=== PATIENT | female | born 1995 | race Hispanic/Latino ===

== ENCOUNTER 2017-02-07 16:22 | Inpatient (IN) | payer BC ==
[2017-02-07] MEDS ORDERED: Sodium Chloride 0.9% 1,000 ML IV STA (17:54)
[2017-02-07 18:00] LABS: BASO % 0.4 % (0.0-2.0); EOS % 0.2 % (0.0-4.0); LYMPH # 1.6 K/uL (1.0-4.3); LYMPH % 21.6 % (20.0-40.0); MEAN CELL VOLUME 85.1 fl (81.0-99.0); MEAN CORPUSCULAR HEMOGLOBIN 28.4 pg (27.0-31.0); MEAN CORPUSCULAR HGB CONC 33.3 g/dL (33.0-37.0); MEAN PLATELET VOLUME 8.6 fl (7.2-11.7); MONO # 0.6 K/uL (0.0-0.8); MONO % 8.4 % (0.0-10.0); NEUT # 5.1 K/uL (1.8-7.0); NEUT % 69.4 % (50.0-75.0); RED CELL DISTRIBUTION WIDTH 13.5 % (11.5-14.5); WHITE BLOOD COUNT 7.3 K/uL (4.8-10.8)
--- NOTE | 2017-02-07 18:00 | ED PDOC ---
HPI: Psych/Substance Abuse Time Seen by Provider: 02/07/17 16:30 Chief Complaint (Nursing): Psychiatric Evaluation Chief Complaint (Provider): Psychiatric Evaluation History Per: Patient History/Exam Limitations: no limitations Current Symptoms Are (Timing): Still Present Suicide/Self Injury Attempted (Context): Ingestion (2x 600mg motrin, "a bunch of advil", nyquil) Severity: Moderate Associated Symptoms: denies: Suicidal Thoughts (patient denies) Additional Complaint(s): 21 year old female with no pertinent medical history is brought into the ED by BLS for a psychiatric evaluation. Patient called 911 after possible pill ingestion. She reports taking 2x tabs of 600mg motrin, "a bunch of" advil, and drank nyquil in a suicidal attempt just prior to arrival. She reports feeling tired but denies having any other medical complaints. She denies having suicidal ideation and homicidal ideation. PMD: not provided Past Medical History Reviewed: Historical Data, Nursing Documentation, Vital Signs Vital Signs: Last Vital Signs Temp 98.0 F 02/07/17 16:25 Pulse 124 H 02/07/17 16:25 Resp 16 02/07/17 16:25 BP 147/106 H 02/07/17 16:25 Pulse Ox 100 02/07/17 16:25 - Medical History PMH: No Chronic Diseases - Surgical History Surgical History: No Surg Hx - Family History Family History: States: No Known Family Hx - Social History Current smoker - smoking cessation education provided: No Alcohol: None Drugs: Denies - Allergies Allergies/Adverse Reactions: Allergies Allergy/AdvReac Type Severity Reaction Status Date / Time No Known Allergies Allergy Verified 02/07/17 16:25 Review of Systems ROS Statement: Except As Marked, All Systems Reviewed And Found Negative Constitutional: Positive for: Other (tired) Psych: Negative for: Suicidal ideation (patient denies) Physical Exam - Reviewed Nursing Documentation Reviewed: Yes Vital Signs Reviewed: Yes - Physical Exam Appears: Positive for: Well, Non-toxic, No Acute Distress Head Exam: Positive for: ATRAUMATIC, NORMOCEPHALIC Skin: Positive for: Normal Color, Warm, Dry Neck: Positive for: Normal Cardiovascular/Chest: Positive for: Regular Rate, Rhythm Respiratory: Positive for: Normal Breath Sounds. Negative for: Respiratory Distress Gastrointestinal/Abdominal: Positive for: Normal Exam, Soft. Negative for: Tenderness Extremity: Positive for: Normal ROM, Other (superficial lacerations on left forearm. no active bleeding. neurovascular intact) Neurologic/Psych: Positive for: Alert, Oriented (3x) - Laboratory Results Result Diagrams: 02/07/17 17:45 02/07/17 17:45 - ECG O2 Sat by Pulse Oximetry: 100 (RA) Pulse Ox Interpretation: Normal Medical Decision Making Medical Decision Makin:43 Initial impression: 21 year old female with possible pill ingestion, as suicide attempt Initial plan: * EKG * acetaminophen * alcohol serum * CMP * drug screen urinary * salicylate * CBC * IV NS 1,000ml IV 999mls/hr * urinalysis * reevaluation RN called poision control. they said observe for signs of gi bleeding for several hours. while in the ER pt without any signs of gi bleeding or any unstable vitals. pt awake and alert in no acute distress pt medically cleared for psych evaluation 21:34 Upon psychiatric evaluation, patient will be admitted to adult psychiatry under Dr. Dean Larios for depression. Scribe Attestation: Documented by Aby Ozuna, acting as a scribe for Smita Murphy MD. Provider Scribe Attestation: All medical record entries made by the Scribe were at my direction and personally dictated by me. I have reviewed the chart and agree that the record accurately reflects my personal performance of the history, physical exam, medical decision making, and the department course for this patient. I have also personally directed, reviewed, and agree with the discharge instructions and disposition. Disposition - Clinical Impression Clinical Impression: Depression - Patient ED Disposition Is Patient to be Admitted: Yes Counseled Patient/Family Regarding: Studies Performed, Diagnosis - Disposition Disposition Time: 21:00 Condition: STABLE
[2017-02-07 18:20] LABS: ALB/GLOB RATIO 1.3 (1.0-2.1); ALCOHOL SERUM < 10 mg/dl (0-10); ALKALINE PHOSPHATASE 74 U/L (38-126); ALT/SGPT 45 U/L (9-52); AST/SGOT 28 U/L (14-36); BILIRUBIN,TOTAL 0.4 mg/dl (0.2-1.3); BLOOD UREA NITROGEN 11 mg/dl (7-17); CALCIUM 9.6 mg/dL (8.4-10.2); CARBON DIOXIDE 23 mmol/L (22-30); CHLORIDE 107 mmol/L (98-107); GFR AFRICAN-AMERICAN > 60; GLUCOSE,RANDOM 95 mg/dL (65-105); POTASSIUM 3.7 MMOL/L (3.6-5.0); SODIUM 141 mmol/l (132-148); TOTAL PROTEIN 8.1 G/DL (6.3-8.2)
[2017-02-07 18:55] LABS: RBC URINE 115 /hpf (0-3); URINE BACTERIA RARE (<OCC); URINE BILIRUBIN NEGATIVE (NEGATIVE); URINE BLOOD LARGE (NEGATIVE); URINE COLOR AMBER (YELLOW); URINE GLUCOSE (UA) NEG (Normal); URINE KETONE NEGATIVE (NEGATIVE); URINE LEUKOCYTE ESTERASE NEG Leu/uL (Negative); URINE PROTEIN 100 mg/dL (NEGATIVE); URINE UROBILINOGEN 0.2-1.0 mg/dL (0.2-1.0); WBC URINE 4 /hpf (0-5)
[2017-02-07 21:46] VITALS: O2SAT 100
[2017-02-07] MEDS ORDERED: Magnesium Hydroxide Susp 30 ml UD PO PRN (22:56)
[2017-02-07] MEDS ORDERED: Alum-Mag Hydrox-Simethicone Susp (30 mL) PO PRN (22:56)
[2017-02-07] MEDS ORDERED: DiphenhydrAMINE 50 mg/ml Inj IM PRN (22:56)
[2017-02-08 08:55] VITALS: BP 131/58; PULSE 93; RESP 20; TEMP 97.7
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
--- NOTE | 2017-02-08 19:14 | CARD ---
APPROVED REPORT EKG Measurement Heart [id number] <Conclusion> Sinus tachycardia Otherwise normal ECG
== END 2017-02-08 15:00 | disposition home or self-care (01) | DRG 885 ==
LOC: H.ER 16:22 → H.EROBSV 20:12 → OBSVTOIN 21:34 → H.ERHOLD 21:39 → H.PSYCH 22:52
PROVIDERS: ADMIT Psychiatry & Neurology Psychiatry; ATTEND Psychiatry & Neurology Psychiatry
PROC: GZHZZZZ Group Psychotherapy (ICD-10-PCS; principal; 2017-02-07)
PROC: GZ58ZZZ Individual Psychotherapy, Cognitive-Behavioral (ICD-10-PCS; 2017-02-07)
DX: F39 Unspecified mood [affective] disorder (principal); F41.9 Anxiety disorder, unspecified; Z91.410 Personal history of adult physical and sexual abuse; Z91.411 Personal history of adult psychological abuse

== ENCOUNTER 2017-04-20 07:07 | Emergency (ER) | payer BC ==
[2017-04-20 07:16] VITALS: BP 115/61; PULSE 81; TEMP 97; O2SAT 100
[2017-04-20 07:17] VITALS: BMI 22.4
[2017-04-20] MEDS ORDERED: Sodium Chloride 0.9% 1,000 ML IV STA (07:25)
--- NOTE | 2017-04-20 07:44 | ED PDOC ---
HPI: Abdomen Time Seen by Provider: 04/20/17 07:08 Chief Complaint (Nursing): Female Genitourinary Chief Complaint (Provider): Abdominal pain History Per: Patient History/Exam Limitations: no limitations Current Symptoms Are (Timing): Still Present Additional Complaint(s): 21 y/o female with a past medical history of kidney stones who presents to the emergency department with a right flank and right lower region abdominal pain since yesterday, 04/19/2017. Denies fever and diarrhea. PMD: Dr. Alejandro Nowak MD Past Medical History Reviewed: Historical Data, Nursing Documentation, Vital Signs Vital Signs: Last Vital Signs Temp 97 F L 04/20/17 07:14 Pulse 81 04/20/17 07:14 Resp BP 115/61 04/20/17 07:14 Pulse Ox 100 04/20/17 09:12 - Medical History PMH: Denies: Diabetes, Hepatitis, HIV, HTN, Chronic Kidney Disease, Seizures, Sexually Transmitted Disease Other PMH: Kidney stones - Family History Family History: States: Unknown Family Hx - Social History Current smoker - smoking cessation education provided: No Alcohol: None Drugs: Denies - Home Medications Home Medications: Ambulatory Orders Medication Instructions Recorded DiphenhydrAMINE [Benadryl] 50 mg PO HS PRN cap 02/08/17 Ciprofloxacin HCl [Cipro] 500 mg PO BID #20 tab 04/20/17 Naproxen [Naprosyn] 500 mg PO Q12H #20 tab 04/20/17 Tamsulosin [Flomax] 0.4 mg PO DAILY #5 cap 04/20/17 traMADol [Ultram] 50 mg PO Q8 #10 tab 04/20/17 - Allergies Allergies/Adverse Reactions: Allergies Allergy/AdvReac Type Severity Reaction Status Date / Time No Known Allergies Allergy Verified 02/07/17 16:25 Review of Systems ROS Statement: Except As Marked, All Systems Reviewed And Found Negative Constitutional: Negative for: Fever Gastrointestinal: Positive for: Nausea, Abdominal Pain (Right lower region). Negative for: Diarrhea Genitourinary Female: Positive for: Dysuria Musculoskeletal: Positive for: Back Pain (Right flank pain) Physical Exam - Reviewed Nursing Documentation Reviewed: Yes Vital Signs Reviewed: Yes - Physical Exam Appears: Positive for: Non-toxic, Uncomfortable Head Exam: Positive for: ATRAUMATIC, NORMAL INSPECTION, NORMOCEPHALIC Skin: Positive for: Normal Color, Warm, Dry Neck: Positive for: Normal, Supple Gastrointestinal/Abdominal: Positive for: Soft, Tenderness (Mild abdominal tenderness to the RLQ region. ). Negative for: Normal Exam Back: Negative for: Normal Inspection, L CVA Tenderness, R CVA Tenderness Neurologic/Psych: Positive for: Alert, Oriented (x3) - Laboratory Results Result Diagrams: 04/20/17 07:40 04/20/17 07:40 - ECG O2 Sat by Pulse Oximetry: 100 (RA) Pulse Ox Interpretation: Normal - Progress Re-evaluation Time: 09:14 Condition: Improved Medical Decision Making Medical Decision Making: Time: 07:25 Initial impression: Abdominal pain Initial plan: --Abd & Pelvis PO & IV CT --CMP --Urine DIP & Preg --CBC w/ diff --Toradol 30 mg IVP --Sodium Chloride 1L IV 100 mls/hr --Reevaluation Time: 09:04 --Abd & Pelvis CT FINDINGS: LOWER THORAX: The lung bases are clear. LIVER: There is mild hepatomegaly. No gross lesion or ductal dilatation. GALLBLADDER AND BILE DUCTS: There are no calcified gallstones. PANCREAS: The pancreas is normal in size. No gross lesion or ductal dilatation. SPLEEN: The spleen is normal in size. ADRENALS: Both adrenal glands are normal in size without discrete nodule. KIDNEYS AND URETERS: There is a 4 mm obstructing stone in the right distal ureter proximal to the UV junction with resultant mild diffuse dilatation of the right ureteral, mild hydronephrosis, edema and enlargement of the right kidney and perinephric stranding and edema. There are punctate nonobstructing stones in the right kidney. The left kidney is normal in size. There is a punctate nonobstructing stone in the upper pole of the left kidney. No hydronephrosis. The left ureter is not dilated. VASCULATURE: No aortic aneurysm. BOWEL: The small bowel loops are normal in caliber. There is moderate amount of stool in the colon. No bowel dilatation. APPENDIX: Normal appendix. PERITONEUM: No free fluid. No free air. LYMPH NODES: No enlarged lymph nodes. BLADDER: Unremarkable. REPRODUCTIVE: The uterus is normal in size. BONES: No acute fracture. OTHER FINDINGS: None. IMPRESSION: 1. Moderate right obstructive uropathy resulting from a 4 mm stone in the right distal ureteral proximal to the UV junction. 2. Small nonobstructing stones in the right kidney. 3. Punctate nonobstructing stone in the upper pole of the left kidney. Scribe Attestation: Documented by Tory Tenorio, acting as a scribe for Micheal Fuentes MD. Provider Scribe Attestation: All medical record entries made by the Scribe were at my direction and personally dictated by me. I have reviewed the chart and agree that the record accurately reflects my personal performance of the history, physical exam, medical decision making, and the department course for this patient. I have also personally directed, reviewed, and agree with the discharge instructions and disposition. Disposition - Clinical Impression Clinical Impression: Kidney stone - Patient ED Disposition Is Patient to be Admitted: No - Disposition Referrals: Reggie Mendiola Jr., MD [Staff Provider] - Disposition: Routine/Home Disposition Time: 09:14 Condition: FAIR Prescriptions: Ciprofloxacin HCl [Cipro] 500 mg PO BID #20 tab Naproxen [Naprosyn] 500 mg PO Q12H #20 tab Tamsulosin [Flomax] 0.4 mg PO DAILY #5 cap traMADol [Ultram] 50 mg PO Q8 #10 tab Instructions: Kidney Stones (ED) Forms: [employer] (E[place]ian)
[2017-04-20 07:56] LABS: BASO # 0.1 K/uL (0.0-0.2); BASO % 0.5 % (0.0-2.0); EOS # 0.1 K/uL (0.0-0.7); EOS % 0.8 % (0.0-4.0); HEMATOCRIT 36.5 % (34.0-47.0); LYMPH # 3.2 K/uL (1.0-4.3); LYMPH % 23.2 % (20.0-40.0); MEAN CORPUSCULAR HEMOGLOBIN 29.4 pg (27.0-31.0); MEAN CORPUSCULAR HGB CONC 33.4 g/dL (33.0-37.0); MEAN PLATELET VOLUME 8.6 fl (7.2-11.7); MONO # 1.2 K/uL (0.0-0.8); MONO % 8.8 % (0.0-10.0); NEUT # 9.2 K/uL (1.8-7.0); NEUT % 66.7 % (50.0-75.0); RED CELL DISTRIBUTION WIDTH 13.5 % (11.5-14.5)
[2017-04-20 08:19] LABS: WHITE BLOOD COUNT 13.9 K/uL (4.8-10.8)
[2017-04-20 08:23] LABS: BLOOD UREA NITROGEN 13 mg/dl (7-17); CHLORIDE 103 mmol/L (98-107); GFR AFRICAN-AMERICAN > 60; GLUCOSE,RANDOM 102 mg/dL (65-105); POTASSIUM 3.7 MMOL/L (3.6-5.0); SODIUM 136 mmol/l (132-148)
[2017-04-20 08:24] LABS: ALB/GLOB RATIO 1.3 (1.0-2.1); CALCIUM 9.6 mg/dL (8.4-10.2); CARBON DIOXIDE 24 mmol/L (22-30); TOTAL PROTEIN 7.1 G/DL (6.3-8.2)
[2017-04-20 08:25] LABS: ALKALINE PHOSPHATASE 67 U/L (38-126); ALT/SGPT 20 U/L (9-52); AST/SGOT 22 U/L (14-36); BILIRUBIN,TOTAL 0.3 mg/dl (0.2-1.3)
--- NOTE | 2017-04-20 09:06 | CT ---
PROCEDURE: CT Abdomen and Pelvis without intravenous contrast HISTORY: r/o kidney stone COMPARISON: None. TECHNIQUE: CT scan of the abdomen and pelvis was performed without administration of intravenous contrast. Oral contrast was not administered. Coronal and sagittal reformatted images were obtained. Radiation dose: Total exam DLP = 306.02 mGy-cm. This CT exam was performed using one or more of the following dose reduction techniques: Automated exposure control, adjustment of the mA and/or kV according to patient size, and/or use of iterative reconstruction technique. FINDINGS: LOWER THORAX: The lung bases are clear. LIVER: There is mild hepatomegaly. No gross lesion or ductal dilatation. GALLBLADDER AND BILE DUCTS: There are no calcified gallstones. PANCREAS: The pancreas is normal in size. No gross lesion or ductal dilatation. SPLEEN: The spleen is normal in size. ADRENALS: Both adrenal glands are normal in size without discrete nodule. KIDNEYS AND URETERS: There is a 4 mm obstructing stone in the right distal ureter proximal to the UV junction with resultant mild diffuse dilatation of the right ureteral, mild hydronephrosis, edema and enlargement of the right kidney and perinephric stranding and edema. There are punctate nonobstructing stones in the right kidney. The left kidney is normal in size. There is a punctate nonobstructing stone in the upper pole of the left kidney. No hydronephrosis. The left ureter is not dilated. VASCULATURE: No aortic aneurysm. BOWEL: The small bowel loops are normal in caliber. There is moderate amount of stool in the colon. No bowel dilatation. APPENDIX: Normal appendix. PERITONEUM: No free fluid. No free air. LYMPH NODES: No enlarged lymph nodes. BLADDER: Unremarkable. REPRODUCTIVE: The uterus is normal in size. BONES: No acute fracture. OTHER FINDINGS: None. IMPRESSION: 1. Moderate right obstructive uropathy resulting from a 4 mm stone in the right distal ureteral proximal to the UV junction. 2. Small nonobstructing stones in the right kidney. 3. Punctate nonobstructing stone in the upper pole of the left kidney.
== END 2017-04-20 09:35 | disposition home or self-care (01) ==
LOC: H.ER 07:07
DX: N20.0 Calculus of kidney (principal)
CPT/HCPCS: 74176; 80053; 81025; 85025; 87086; 96361; 96374; 99284; J1885; J7040